=== PATIENT | female | born 1995 | race Caucasian/White ===

== ENCOUNTER 2018-10-31 20:52 | Emergency (ER) | payer SELFPAY ==
[~2018-10-31] VITALS: Ht 165.1 cm; Wt 67.1 kg
[2018-10-31 23:01] VITALS: BP 109/72
== END 2018-10-31 23:01 | disposition left against medical advice (07) ==
LOC: ED 20:52
DX: N93.8 Other specified abnormal uterine and vaginal bleeding (principal)
CPT/HCPCS: J7030

== ENCOUNTER 2019-06-24 03:49 | Emergency (ER) | payer SELFPAY ==
[~2019-06-24] VITALS: Ht 165.1 cm; Wt 82.1 kg
[2019-06-24 03:59] VITALS: Ht 165.1 cm; Wt 82.1 kg
[2019-06-24 06:33] VITALS: BP 115/74
== END 2019-06-24 06:33 | disposition home or self-care (01) ==
LOC: ED 03:49
DX: K80.70 Calculus of gallbladder and bile duct without cholecystitis without obstruction (principal); K80.20 Calculus of gallbladder without cholecystitis without obstruction
CPT/HCPCS: J1885; Q0092